=== PATIENT | male | born 1945 | race Caucasian/White ===

== ENCOUNTER 2017-01-01 08:40 | Emergency (ER) | payer MEDICARE, OTHER ==
[~2017-01-01] VITALS: Ht 175.3 cm; Wt 98.2 kg
[~2017-01-01 08:40] MED LIST: AMOXICILLIN/CLA1 TA1 PO; ATIVAN0.5 MG PO; CARVEDILOL12.5 MG PO; DEPO-TESTOS200 MG/M1 IM; DOCUSATE100 MG PO; FEXOFENADINE180 MG PO; FLUTICASON0.05 MG/Ac NAS; FOSINOPRIL40 MG PO; HYDROCHLOR50 MG PO; LANTUS100 U/ML SQ; LORTAB 10/500 51 TAB PO; LUTEIN20 M1 PO; MIRALAX17 GM/DOSE PO; NOVOLIN R100 U/ML; NOVOLIN R100 U/ML SQ; OMEGA 31000 MG PO; OMEPRAZOLE20 MG PO; PRAVACHOL10 MG PO; ST. JOSEPH81 M2 PO; TENORMIN50 MG PO; ZOLPIDEM10 MG PO
[2017-01-01] MEDS ORDERED: NORVASC 10MG10 MG PO (10:25)
[2017-01-01] MEDS ORDERED: VITAMIN D31000 I1 PO (10:26)
[2017-01-01] MEDS ORDERED: LANTUS SOLOS100 U/ML SQ (10:27)
[2017-01-01] MEDS ORDERED: INSULIN R (N100 U/ML SQ (10:28)
[2017-01-01] MEDS ORDERED: CLARITIN 1010 MG/TAB PO (10:28)
[2017-01-01] MEDS ORDERED: RITALIN5 M1 PO (10:29)
[2017-01-01] MEDS ORDERED: SINGULAIR PO (10:30)
[2017-01-01] MEDS ORDERED: OXYCODONE PO (14:15)
[2017-01-01 14:20] VITALS: BP 167/87
== END 2017-01-01 14:20 | disposition home or self-care (01) ==
LOC: ED 08:40
DX: R10.84 Generalized abdominal pain (principal); E10.9 Type 1 diabetes mellitus without complications; Z79.4 Long term (current) use of insulin; I10 Essential (primary) hypertension; Z87.891 Personal history of nicotine dependence; R11.2 Nausea with vomiting, unspecified
CPT/HCPCS: J1815; J2405; J3010; J7030; Q9967

== ENCOUNTER 2017-08-11 15:03 | Emergency (ER) | payer MEDICARE, OTHER ==
[~2017-08-11] VITALS: Ht 175.3 cm; Wt 98.2 kg
[~2017-08-11 15:03] MED LIST changes: +CLARITIN 1010 MG/TAB PO; +INSULIN R (N100 U/ML SQ; +LANTUS SOLOS100 U/ML SQ; +NORVASC 10MG10 MG PO; +OXYCODONE PO; +RITALIN5 M1 PO; +SINGULAIR PO; +VITAMIN D31000 I1 PO
[2017-08-11 15:55] LABS: EOS # 0.4 (0.04-0.40); HEMATOCRIT 43.8 % (42.0-52.0); HEMOGLOBIN 15.2 g/dL (13.5-18.0); LYMPH# 0.9 (1.50-4.00); MEAN CELL VOLUME 91 fl (78-100); MEAN CORPUSCULAR HEMOGLOBIN 32 pg (27-31); MEAN CORPUSCULAR HGB CONC 35 g/dL (33-37); MEAN PLATELET VOLUME 9.7 fl (7.4-10.4); MONO # 0.5 (0.20-0.80); NEU # 4.7 (1.40-6.50); PLATELET COUNT 89 K/mm3 (130-400); RED BLOOD COUNT 4.81 M/mm3 (4.20-5.60); RED CELL DISTRIBUTION WIDTH 13.1 % (11.5-14.5); WHITE BLOOD COUNT 6.5 K/mm3 (4.8-10.8)
[2017-08-11 16:10] LABS: ALBUMIN 3.7 g/dL (3.5-5.0); BUN/CREATININE RATIO 22.6 (6.0-26.0); CALCIUM 9.3 mg/dL (8.4-10.2); POTASSIUM 4.4 mmol/L (3.6-5.0); TOTAL BILIRUBIN 0.8 mg/dL (0.2-1.3); TOTAL PROTEIN 6.8 g/dL (6.3-8.2)
[2017-08-11 16:13] LABS: EOS % 5.8 % (0.0-4.0)
[2017-08-11 18:02] VITALS: BP 170/75
== END 2017-08-11 17:50 | disposition home or self-care (01) ==
LOC: ED 15:03
PROVIDERS: Family Medicine
DX: S01.01XA Laceration without foreign body of scalp, initial encounter (principal); E10.65 Type 1 diabetes mellitus with hyperglycemia; S33.5XXA Sprain of ligaments of lumbar spine, initial encounter; W18.30XA Fall on same level, unspecified, initial encounter; Y92.009 Unspecified place in unspecified non-institutional (private) residence as the place of occurrence of the external cause; S30.0XXA Contusion of lower back and pelvis, initial encounter; K59.00 Constipation, unspecified; Z79.4 Long term (current) use of insulin; Z85.038 Personal history of other malignant neoplasm of large intestine; Z23 Encounter for immunization; Z79.82 Long term (current) use of aspirin; Z88.1 Allergy status to other antibiotic agents; Z88.8 Allergy status to other drugs, medicaments and biological substances
CPT/HCPCS: 90715; J1885

== ENCOUNTER → 2017-10-31 | Outpatient (CLI) | payer MEDICARE, OTHER | LOC: RAD 12:53 | DX: K76.9 Liver disease, unspecified (principal); N28.9 Disorder of kidney and ureter, unspecified; I86.1 Scrotal varices; Z98.890 Other specified postprocedural states ==

== ENCOUNTER → 2017-11-29 | Outpatient (CLI) | payer MEDICARE, OTHER | LOC: RAD 15:42 | DX: I34.0 Nonrheumatic mitral (valve) insufficiency (principal); R93.1 Abnormal findings on diagnostic imaging of heart and coronary circulation ==

== ENCOUNTER 2018-02-19 20:48 | Observation (INO) | payer MEDICARE, OTHER ==
[~2018-02-19] VITALS: Ht 175.3 cm; Wt 97.0 kg
[2018-02-19 21:44] LABS: HEMATOCRIT 44.6 % (42.0-52.0); HEMOGLOBIN 15.2 g/dL (13.5-18.0); MEAN CELL VOLUME 90 fl (78-100); MEAN CORPUSCULAR HEMOGLOBIN 31 pg (27-31); MEAN CORPUSCULAR HGB CONC 34 g/dL (33-37); MEAN PLATELET VOLUME 9.6 fl (7.4-10.4); PLATELET COUNT 104 K/mm3 (130-400); RED BLOOD COUNT 4.98 M/mm3 (4.20-5.60); RED CELL DISTRIBUTION WIDTH 13.8 % (11.5-14.5); WHITE BLOOD COUNT 5.1 K/mm3 (4.8-10.8)
[2018-02-19 21:48] LABS: ACETAMINOPHEN 11 ug/mL (10-30); ALBUMIN 3.2 g/dL (3.5-5.0); ALT/SGPT 34 U/L (21-72); AST-SGOT 37 U/L (17-59); CARBON DIOXIDE 31 mmol/L (22-30); GLUCOSE 148 mg/dL (75-110); POTASSIUM 3.8 mmol/L (3.6-5.0); SODIUM 136 mmol/L (137-145); TOTAL BILIRUBIN 0.8 mg/dL (0.2-1.3); TOTAL PROTEIN 5.9 g/dL (6.3-8.2)
[2018-02-19 21:49] LABS: ALCOHOL IN-HOUSE < 10 mg/dL
[2018-02-19 21:51] LABS: LIPASE 50 U/L (23-300)
[2018-02-19 22:02] LABS: PROTHROMBIN TIME 11.4 SECONDS (9.0-12.0)
[2018-02-19 22:05] LABS: LYMPHOCYTE 19 % (20-51); MONOCYTE 10 % (3-10); NEUTROPHILS 61 % (42-75)
[2018-02-20 00:51] VITALS: BP 151/91
[2018-02-20 00:58] VITALS: BP 151/91
[2018-02-20 02:09] LABS: URINE APPEARANCE CLEAR; URINE COLOR YELLOW
[2018-02-20 02:10] LABS: URINE BILIRUBIN NEGATIVE (NEGATIVE); URINE BLOOD NEGATIVE (NEGATIVE); URINE KETONE NEGATIVE (NEGATIVE); URINE LEUKOCYTE ESTERASE NEGATIVE (NEGATIVE); URINE NITRATE NEGATIVE (NEGATIVE); URINE PROTEIN(semi-quant) TRACE mg/dL (NEGATIVE); URINE UROBILINOGEN NORMAL (NORMAL)
[2018-02-20 03:03] VITALS: BP 154/94
[2018-02-20 05:37] LABS: ACETAMINOPHEN 14 ug/mL (10-30)
[2018-02-20] MEDS ORDERED: CELEBREX 1100 MG/CAP PO (05:47)
[2018-02-20] MEDS ORDERED: COLESTIPOL HYDRO1 GM PO (05:50)
[2018-02-20] MEDS ORDERED: DICLOFENAC SOD100 GM TP (05:52)
[2018-02-20] MEDS ORDERED: COLACE100 M1 PO (05:53)
[2018-02-20] MEDS ORDERED: PROSCAR PO (05:54)
[2018-02-20] MEDS ORDERED: FLUTICASON0.05 MG/AC NS (05:56)
[2018-02-20] MEDS ORDERED: LASIX20 M1 PO (05:56)
[2018-02-20] MEDS ORDERED: NEURONTIN300 M1 PO (05:57)
[2018-02-20] MEDS ORDERED: NORCO 10-325 T1 EACH PO (05:58)
[2018-02-20] MEDS ORDERED: KERODEX 711 CRE TP (05:59)
[2018-02-20] MEDS ORDERED: RELION NOVOL100 U/M1 SQ (06:01)
[2018-02-20] MEDS ORDERED: LANTUS PEN100 U/ML SQ (06:03)
[2018-02-20] MEDS ORDERED: LATANOPROST 2.2.5 ML OU (06:04)
[2018-02-20] MEDS ORDERED: LIDODERM1 EACH TP (06:07)
[2018-02-20] MEDS ORDERED: PRINIVIL20 M1 PO (06:09)
[2018-02-20] MEDS ORDERED: CLARITIN 1010 MG/TAB PO (06:11)
[2018-02-20] MEDS ORDERED: KAPSPARGO SPRI100 MG PO (06:12)
[2018-02-20] MEDS ORDERED: DAILY MULTIPLE1 T18 PO (06:14)
[2018-02-20] MEDS ORDERED: SILVADENE11 TP (06:16)
[2018-02-20] MEDS ORDERED: TRIAMCINOLONE AC0.13 TP (06:16)
[2018-02-20] MEDS ORDERED: BILBERRY EXTRAC80 MG PO (06:17)
[2018-02-20] MEDS ORDERED: METOCLOPRAMIDE H5 M1 PO (06:21)
[2018-02-20] MEDS ORDERED: MOBIC15 M1 PO (06:22)
[2018-02-20 06:23] VITALS: BP 138/74
[2018-02-20 11:11] VITALS: BP 123/74
[2018-02-20 15:15] VITALS: BP 133/84
[2018-02-20 16:55] LABS: PH-URINE 5.5 (5.0 - 8.0); URINE APPEARANCE CLOUDY; URINE COLOR RED; URINE PROTEIN(semi-quant) TRACE mg/dL (NEGATIVE)
[2018-02-20 16:56] LABS: URINE BILIRUBIN NEGATIVE (NEGATIVE); URINE BLOOD 250 ery/uL (NEGATIVE); URINE KETONE 1+ (NEGATIVE); URINE LEUKOCYTE ESTERASE 1+ (NEGATIVE); URINE NITRATE NEGATIVE (NEGATIVE); URINE UROBILINOGEN NORMAL (NORMAL); URINE WBC 31-50 /hpf (0-3)
[2018-02-22 07:47] LABS: ACETONE AMS
== END 2018-02-20 17:00 | disposition home or self-care (01) ==
LOC: ED 20:48 → MED/SURG 23:38
PROVIDERS: Nurse Practitioner; ADMIT Nurse Practitioner Family
DX: T45.0X1A Poisoning by antiallergic and antiemetic drugs, accidental (unintentional), initial encounter (principal); R41.82 Altered mental status, unspecified; R41.0 Disorientation, unspecified; I48.91 Unspecified atrial fibrillation; N39.0 Urinary tract infection, site not specified; I11.0 Hypertensive heart disease with heart failure; I50.9 Heart failure, unspecified; E11.9 Type 2 diabetes mellitus without complications; K21.9 Gastro-esophageal reflux disease without esophagitis; F32.9 Major depressive disorder, single episode, unspecified; F41.9 Anxiety disorder, unspecified; H35.30 Unspecified macular degeneration; E78.5 Hyperlipidemia, unspecified; I73.9 Peripheral vascular disease, unspecified; F90.9 Attention-deficit hyperactivity disorder, unspecified type; E29.1 Testicular hypofunction; E55.9 Vitamin D deficiency, unspecified; Z79.82 Long term (current) use of aspirin; Z79.899 Other long term (current) drug therapy; Z79.4 Long term (current) use of insulin; Z87.891 Personal history of nicotine dependence; Y92.009 Unspecified place in unspecified non-institutional (private) residence as the place of occurrence of the external cause
CPT/HCPCS: G0378; J0744; J1650; J1940; J7030

== ENCOUNTER 2018-07-02 17:52 | Emergency (ER) | payer MEDICARE, OTHER ==
[~2018-07-02] VITALS: Ht 175.3 cm; Wt 84.5 kg
[~2018-07-02 17:52] MED LIST changes: +ALPHAGAN OU; +BILBERRY EXTRAC80 MG PO; +CELEBREX 1100 MG/CAP PO; +COLACE100 M1 PO; +COLESTIPOL HYDRO1 GM PO; +DAILY MULTIPLE1 T18 PO; +DICLOFENAC SOD100 GM TP; +ELIQUIS5 MG PO; +FLUTICASON0.05 MG/AC NS; +KAPSPARGO SPRI100 MG PO; +KERODEX 711 CRE TP; +LANTUS PEN100 U/ML SQ; +LASIX20 M1 PO; +LATANOPROST 2.2.5 ML OU; +LEVAQUIN 5500 MG/TA1 PO; +LIDODERM1 EACH TP; +METOCLOPRAMIDE H5 M1 PO; +MOBIC15 M1 PO; +NEURONTIN300 M1 PO; +NORCO 10-325 T1 EACH PO; +OMEGA 3 1,0001 EACH PO; -OMEGA 31000 MG PO; +PRINIVIL20 M1 PO; +PROSCAR PO; +RELION NOVOL100 U/M1 SQ; +SILVADENE11 TP; +TRIAMCINOLONE AC0.13 TP; +ZOFRAN ODT4 MG PO
[2018-07-02 20:30] VITALS: BP 140/82
== END 2018-07-02 20:30 | disposition short-term general hospital (02) ==
LOC: ED 17:52
DX: M53.3 Sacrococcygeal disorders, not elsewhere classified (principal); N48.22 Cellulitis of corpus cavernosum and penis; N39.0 Urinary tract infection, site not specified; R33.9 Retention of urine, unspecified; E11.9 Type 2 diabetes mellitus without complications; F32.9 Major depressive disorder, single episode, unspecified; F41.9 Anxiety disorder, unspecified; F90.9 Attention-deficit hyperactivity disorder, unspecified type; G47.30 Sleep apnea, unspecified; Z79.4 Long term (current) use of insulin; Z79.01 Long term (current) use of anticoagulants; Z79.51 Long term (current) use of inhaled steroids; Z87.891 Personal history of nicotine dependence; Z85.038 Personal history of other malignant neoplasm of large intestine
CPT/HCPCS: J3010